=== PATIENT | male | born 2000 | race Caucasian/White ===

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

== ENCOUNTER → 2020-04-30 | Outpatient (CLI) | payer BC ==
[~2020-04-30] MED LIST changes: +DOXYCYCLINE 10100 MG PO; +MOTRIN 800800 MG/TAB PO
== END ==
LOC: ZCOL.LAB 16:29
DX: U07.1 COVID-19 (principal)